=== PATIENT | male | born 1965 | race Two or more races ===

== ENCOUNTER 2018-09-01 16:11 | Emergency (ER) | payer MEDICAID ==
[~2018-09-01] VITALS: Ht 180.3 cm; Wt 95.3 kg
[2018-09-01 16:19] VITALS: BP 137/90
== END 2018-09-01 19:28 | disposition home or self-care (01) ==
LOC: ER 16:11
DX: R07.81 Pleurodynia (principal); M54.2 Cervicalgia; V03.90XA Pedestrian on foot injured in collision with car, pick-up truck or van, unspecified whether traffic or nontraffic accident, initial encounter; Y93.89 Activity, other specified; Y99.8 Other external cause status; Y92.89 Other specified places as the place of occurrence of the external cause
CPT/HCPCS: 71101; 72040

== ENCOUNTER 2020-06-16 20:53 | Emergency (ER) | payer OTHER, BC ==
[~2020-06-16] VITALS: Ht 180.3 cm; Wt 107.5 kg
[2020-06-16 21:07] VITALS: BP 132/96
== END 2020-06-17 00:39 | disposition home or self-care (01) ==
LOC: ER 20:53
DX: M54.5 Low back pain (principal); M62.838 Other muscle spasm; V49.9XXA Car occupant (driver) (passenger) injured in unspecified traffic accident, initial encounter; Y93.89 Activity, other specified; Y92.89 Other specified places as the place of occurrence of the external cause; Y99.8 Other external cause status
CPT/HCPCS: 70450; 71250; 72125; 72128; 72131; 74176

== ENCOUNTER 2021-05-03 09:49 | Emergency (ER) | payer SELFPAY ==
[~2021-05-03] VITALS: Ht 180.3 cm; Wt 103.0 kg
[2021-05-03 11:32] VITALS: BP 130/88
[2021-05-03] MEDS ORDERED: TETANUS-DIPTH-ACEL PERTUSSIS 0.5ML SYR Tdap IM ONE (11:45)
== END 2021-05-03 12:16 | disposition home or self-care (01) ==
LOC: ER 09:49
DX: S61.216A Laceration without foreign body of right little finger without damage to nail, initial encounter (principal); W25.XXXA Contact with sharp glass, initial encounter; Y93.89 Activity, other specified; Y92.89 Other specified places as the place of occurrence of the external cause; Y99.8 Other external cause status
CPT/HCPCS: 12001; 90471; 90715

== ENCOUNTER 2021-08-21 08:58 | Emergency (ER) | payer SELFPAY ==
[~2021-08-21] VITALS: Ht 180.3 cm; Wt 107.5 kg
[2021-08-21] MEDS ORDERED: ASPirin 81 mg TAB PO ONE (10:45)
[2021-08-21 11:38] LABS: Basophils # (auto) 0.1 10 ^3/uL (0-0.2); Basophils % (auto) 0.3 % (0.0-2.0); Eosinophils # (auto) 0 10 ^3/uL (0-0.8); Hematocrit 46.7 % (41.0-53.0); Hemoglobin 15.8 g/dL (13.5-17.5); Lymphocytes # (auto) 1.4 10 ^3/uL (0.4-5.4); Lymphocytes % (auto) 6.9 % (10.0-50.0); Mean Corpuscular Hemoglobin 31.3 pg (28.0-32.0); Mean Corpuscular Hgb Conc. 33.8 g/dL (32.0-36.0); Mean Corpuscular Volume 92.6 fL (80.0-100.0); Monocytes # (auto) 1.9 10 ^3/uL (0-1.3); Monocytes % (auto) 9.2 % (0.0-12.0); Neutrophils # (auto) 17.1 10 ^3/uL (1.6-8.6); Neutrophils % (auto) 83.6 % (37.0-80.0); Nucleated Red Blood Cells % 0.2 %; Red Blood Cells 5.04 10^6/uL (4.5-5.90); Red Cell Distribution Width 13.5 % (11.8-14.3); White Blood Cell 20.5 10^3/uL (4.4-10.8)
[2021-08-21 11:43] LABS: Albumin 3.5 g/dL (3.4-5.0); Calcium 8.9 mg/dL (8.5-10.1); Potassium 4.4 mmol/L (3.5-5.1)
[2021-08-21 11:48] LABS: BUN/Creatinine Ratio 11.6; Bilirubin, Total 1.4 mg/dL (0.2-1.0); Total Protein 7.6 g/dL (6.4-8.2)
[2021-08-21 14:55] VITALS: BP 107/62
[2021-08-21 15:55] LABS: Urine Bacteria MANY /hpf (None Seen); Urine Blood 1+ /uL (Negative); Urine Hyaline Cast FEW /lpf (0 - 2); Urine Mucus FEW (None Seen); Urine Specific Gravity 1.019 (1.001-1.035); Urine WBC 240 /hpf (0 - 3)
== END 2021-08-21 18:31 | disposition home or self-care (01) ==
LOC: ER 08:58
DX: R07.89 Other chest pain (principal); N39.0 Urinary tract infection, site not specified
CPT/HCPCS: 36415; 71045; 74176; 80053; 81001; 84484; 85025; 93005

== ENCOUNTER 2024-02-21 06:34 | Inpatient (IN) | payer OTHER ==
[~2024-02-21] VITALS: Ht 180.3 cm; Wt 105.0 kg
[~2024-02-21 06:34] MED LIST: NAPR220C PO
[2024-02-21] MEDS: levoFLOXacin 750MG 150 ML IV ONE (06:45)
[2024-02-21] MEDS: LIDOCAINE W/ EPINEPHRINE 1% 20ML VIAL ONE ×2 (06:47→13:25)
[2024-02-21] MEDS: TRANEXAMIC ACID 20 ML ONE ×2 (06:47→11:33)
[2024-02-21] MEDS ORDERED: HYDROmorphone HCL 2 MG/ML VL/or syr ONE (06:48)
[2024-02-21] MEDS ORDERED: MIDAZOLAM HCL 2MG/2ML 2ml VIAL (1mg/ml) ONE (06:48)
[2024-02-21] MEDS ORDERED: fentaNYL CITRATE 100 MCG/2 ML VL ONE ×2 (06:48→13:56)
[2024-02-21] MEDS ORDERED: KETAMINE 50mg/ML 1ml syringe ONE (06:48)
[2024-02-21] MEDS ORDERED: PROPOFOL 10 MG/ML 20 ML IV ONE (06:49)
[2024-02-21] MEDS ORDERED: ROCURONIUM 10MG/ML 10ML VIAL IV ONE (06:49)
[2024-02-21] MEDS ORDERED: DexAMETHasone SOD PHOS 10MG/1ML VIAL INJ ONE (06:49)
[2024-02-21] MEDS ORDERED: ONDANSETRON HCL 4 MG/2 ML VIAL ONE (06:49)
[2024-02-21] MEDS ORDERED: GLYCOPYRROLATE 0.2 MG/ML 1ML VIAL ONE (06:49)
[2024-02-21] MEDS: ceFAZolin 1GM/50ML 100 ML IV ONE (08:26)
[2024-02-21] MEDS ORDERED: HYDROCORTISONE SOD SUCC 100 MG/2ML INJ VIAL ONE (12:18)
[2024-02-21] MEDS ORDERED: MEPERIDINE HCL (50 MG/ML) 1 ML VIAL ONE (14:48)
[2024-02-21] MEDS ORDERED: NITROGLYCERIN 0.4 MG SL TAB SL PRN (15:15)
[2024-02-21] MEDS ORDERED: MORPHINE SULFATE INJ 2 MG/ml SYRG IV PRN (15:15)
[2024-02-21] MEDS ORDERED: ACETAMINOPHEN 325 MG TAB PO PRN (15:15)
[2024-02-21 16:05] VITALS: O2SAT 98
[2024-02-21] MEDS ORDERED: ePHEDrine SULFATE 50 MG/ML AMP IV PRN (16:15)
[2024-02-21] MEDS ORDERED: MIDAZOLAM HCL 2MG/2ML 2ml VIAL (1mg/ml) IV PRN (16:15)
[2024-02-21] MEDS ORDERED: MORPHINE SULFATE 4 MG/ML SYR/VIAL IV PRN (16:15)
[2024-02-21] MEDS ORDERED: HYDROmorphone HCL 2 MG/ML VL/or syr IV PRN (16:15)
[2024-02-21] MEDS ORDERED: LABETALOL HCL 5 MG/ML 4ML SYRINGE IV PRN (16:15)
[2024-02-21] MEDS: ONDANSETRON HCL 4 MG/2 ML VIAL IV ONE (16:15)
[2024-02-21 17:00] VITALS: BP 134/80; PULSE 84; RESP 16; TEMP 97; O2SAT 95
[2024-02-21 17:16] VITALS: PULSE 84; O2SAT 95
[2024-02-21 17:56] LABS: Basophils # (auto) 0 10 ^3/uL (0-0.2); Basophils % (auto) 0.2 % (0.0-2.0); Eosinophils # (auto) 0 10 ^3/uL (0-0.8); Hematocrit 42.6 % (41.0-53.0); Hemoglobin 13.9 g/dL (13.5-17.5); Lymphocytes # (auto) 0.9 10 ^3/uL (0.4-5.4); Lymphocytes % (auto) 7.8 % (10.0-50.0); Mean Corpuscular Hemoglobin 29.9 pg (28.0-32.0); Mean Corpuscular Hgb Conc. 32.6 g/dL (32.0-36.0); Mean Corpuscular Volume 91.8 fL (80.0-100.0); Monocytes # (auto) 0.1 10 ^3/uL (0-1.3); Neutrophils # (auto) 10.2 10 ^3/uL (1.6-8.6); Red Blood Cells 4.65 10^6/uL (4.5-5.90); Red Cell Distribution Width 13.5 % (11.8-14.3); White Blood Cell 11.2 10^3/uL (4.4-10.8)
[2024-02-21] MEDS: D5W/SOD CHLO 0.9% 1,000 ML IV SCH (17:57)
[2024-02-21] MEDS: MORPHINE SULFATE INJ 2 MG/ml SYRG IV PRN (17:57)
[2024-02-21 20:00] VITALS: PULSE 77; PULSE 85; RESP 19; O2SAT 100
[2024-02-21] MEDS: ONDANSETRON HCL 4 MG/2 ML VIAL IV PRN (20:06)
[2024-02-21 21:00] VITALS: BP 124/86; PULSE 85; RESP 19; TEMP 98.8; O2SAT 100
[2024-02-21] MEDS: ceFAZolin 1GM/50ML 50 ML IV SCH (21:05)
[2024-02-21] MEDS: DOCUSATE SOD 100 MG CAP PO SCH (21:05)
[2024-02-21] MEDS: CYCLOBENZAPRINE HCL 10 MG TAB PO SCH (21:06)
[2024-02-21] MEDS: THROAT LOZENGES(CEPASTAT) MT PRN (21:06)
[2024-02-22] VITALS (8 sets, daily range): BP systolic 72–141; BP diastolic 64–81; PULSE 64–101; RESP 18–22; TEMP 97.2–98.5; O2SAT 92–100
[2024-02-22] MEDS: HYDROcodone-ACET 10/325MG TAB PO PRN (10:28)
[2024-02-23] VITALS (8 sets, daily range): BP systolic 124–161; BP diastolic 85–97; PULSE 73–93; RESP 18–20; TEMP 97.5–98.3; O2SAT 91–94
[2024-02-23] MEDS: PANTOPRAZOLE 40 MG TAB PO ONE (15:49)
[2024-02-23] MEDS: MAALOX PLUS or MAALOX 30 ML PO PRN (15:50)
[2024-02-23 16:14] LABS: Chloride 103 mmol/L (98-107); Sodium 136 mmol/L (136-145)
[2024-02-23 16:15] LABS: Anion Gap 8 (5-15); Calcium 9.4 mg/dL (8.5-10.1); Carbon Dioxide 25 mmol/L (20-30)
[2024-02-23 16:20] LABS: BUN/Creatinine Ratio 12.1 (10.0-20.0); Blood Urea Nitrogen 8 mg/dL (9-23); Glucose 127 mg/dL (74-106)
[2024-02-24] VITALS (7 sets, daily range): BP systolic 114–146; BP diastolic 79–101; PULSE 88–96; RESP 16–20; TEMP 97.8–99.4; O2SAT 92–100
[2024-02-24 07:21] LABS: Basophils # (auto) 0 10 ^3/uL (0-0.2); Basophils % (auto) 0.4 % (0.0-2.0); Eosinophils # (auto) 0 10 ^3/uL (0-0.8); Eosinophils % (auto) 0.1 % (0.0-7.0); Hematocrit 42.4 % (41.0-53.0); Hemoglobin 13.9 g/dL (13.5-17.5); Lymphocytes # (auto) 1.8 10 ^3/uL (0.4-5.4); Lymphocytes % (auto) 15.8 % (10.0-50.0); Mean Corpuscular Hemoglobin 29.9 pg (28.0-32.0); Mean Corpuscular Hgb Conc. 32.7 g/dL (32.0-36.0); Mean Corpuscular Volume 91.5 fL (80.0-100.0); Monocytes # (auto) 1.2 10 ^3/uL (0-1.3); Monocytes % (auto) 10.1 % (0.0-12.0); Neutrophils # (auto) 8.4 10 ^3/uL (1.6-8.6); Neutrophils % (auto) 73.6 % (37.0-80.0); Nucleated Red Blood Cells % 0.2 %; Red Blood Cells 4.63 10^6/uL (4.5-5.90); Red Cell Distribution Width 13.6 % (11.8-14.3); White Blood Cell 11.5 10^3/uL (4.4-10.8)
[2024-02-24 07:22] LABS: Chloride 102 mmol/L (98-107); Potassium 3.5 mmol/L (3.5-5.1); Sodium 134 mmol/L (136-145)
[2024-02-24 07:23] LABS: Anion Gap 8 (5-15); Carbon Dioxide 24 mmol/L (20-30)
[2024-02-24 07:24] LABS: Calcium 8.9 mg/dL (8.5-10.1)
[2024-02-24 07:28] LABS: Glucose 140 mg/dL (74-106)
[2024-02-24 07:29] LABS: BUN/Creatinine Ratio 12.3 (10.0-20.0); Blood Urea Nitrogen 8 mg/dL (9-23); Magnesium 1.9 mg/dL (1.6-2.6)
[2024-02-24] MEDS: PANTOPRAZOLE 40 MG TAB PO SCH (10:13)
[2024-02-25] VITALS (10 sets, daily range): BP systolic 103–126; BP diastolic 63–78; PULSE 78–108; RESP 14–19; TEMP 97.9–98.8; O2SAT 95–98
[2024-02-25] MEDS ORDERED: ACET-1882 PO (11:56)
[2024-02-25] MEDS ORDERED: CYCL-611 PO (11:56)
[2024-02-25] MEDS ORDERED: HYDR-4798 PO (11:56)
[2024-02-25] MEDS ORDERED: DOCU-265 PO (11:56)
[2024-02-26] VITALS (7 sets, daily range): BP systolic 111–179; BP diastolic 74–90; PULSE 62–87; RESP 16–19; TEMP 97.4–98.6; O2SAT 95–99
== END 2024-02-26 17:30 | disposition home health service (06) | DRG 460 ==
LOC: SUR 06:34 → TELE 15:13 → TELE-EAST 17:10
PROVIDERS: ADMIT Orthopaedic Surgery; ATTEND Internal Medicine
PROC: 0SG1071 Fusion of 2 or more Lumbar Vertebral Joints with Autologous Tissue Substitute, Posterior Approach, Posterior Column, Open Approach (ICD-10-PCS; principal; 2024-02-22)
PROC: 01NB0ZZ Release Lumbar Nerve, Open Approach (ICD-10-PCS; 2024-02-22)
PROC: 00NY0ZZ Release Lumbar Spinal Cord, Open Approach (ICD-10-PCS; 2024-02-22)
PROC: 4A11X4G Monitoring of Peripheral Nervous Electrical Activity, Intraoperative, External Approach (ICD-10-PCS; 2024-02-22)
DX: M48.062 Spinal stenosis, lumbar region with neurogenic claudication (principal); M54.16 Radiculopathy, lumbar region; K21.9 Gastro-esophageal reflux disease without esophagitis; G89.29 Other chronic pain
CPT/HCPCS: 36415; 72100; 76000; 80048; 83735; 85025; 97110; 97116; 97163; 97530; G0378; J1100; J1956; J2250; J2405; J2704; J7042